=== PATIENT | female | born 1985 | race Caucasian/White ===

== ENCOUNTER 2016-12-03 16:27 | Emergency (ER) | payer MEDICAID, OTHER ==
[~2016-12-03] VITALS: Ht 152.4 cm; Wt 79.1 kg
[~2016-12-03 16:27] MED LIST: PRENATAL VITAMINS
[2016-12-03 16:33] VITALS: BP 140/99
--- NOTE | 2016-12-03 17:54 | NUR ---
PT PLACED IN OVERFLOW
[2016-12-03] MEDS ORDERED: DEXAMETHASONE 10 MG/ML VIAL IM ONE (18:05)
[2016-12-03] MEDS ORDERED: IBUPROFEN 600 MG TAB PO ONE (18:10)
--- NOTE | 2016-12-03 18:10 | NUR ---
Patient being evaluated by RNAI Thompson in overflow.
[2016-12-03 18:45] VITALS: BP 140/99
--- NOTE | 2016-12-03 18:46 | NUR ---
Patient discharged with v/s stable. Written and verbal after care instructions given and explained. Patient alert, oriented and verbalized understanding of instructions. Ambulatory with steady gait. All questions addressed prior to discharge. ID band removed. Patient advised to follow up with PMD. Rx of AMOXICILLIN AND MOTRIN given. Patient educated on indication of medication including possible reaction and side effects. Opportunity to ask questions provided and answered.
== END 2016-12-03 18:46 | disposition home or self-care (01) ==
LOC: MED 16:27
DX: J02.0 Streptococcal pharyngitis (principal); Z88.2 Allergy status to sulfonamides
CPT/HCPCS: 81025; 96372; 99283; J1100

== ENCOUNTER 2017-01-31 12:11 | Emergency (ER) | payer OTHER ==
[~2017-01-31] VITALS: Ht 152.4 cm; Wt 77.1 kg
[2017-01-31 12:18] VITALS: BP 148/95
[2017-01-31] MEDS ORDERED: FLUORESCEIN OPTH STRIP 1 MG ONE (12:37)
[2017-01-31 13:02] VITALS: BP 133/84
== END 2017-01-31 13:05 | disposition home or self-care (01) ==
LOC: MED 12:11
DX: H10.213 Acute toxic conjunctivitis, bilateral (principal); Z88.2 Allergy status to sulfonamides; Z79.899 Other long term (current) drug therapy
CPT/HCPCS: 99283